=== PATIENT | female | born 2000 | race Caucasian/White ===

== ENCOUNTER 2023-04-01 12:48 | Emergency (ER) | payer SELFPAY ==
[2023-04-01] MEDS ORDERED: Albuterol 200 PUFF INH ONE (13:23)
[2023-04-01] MEDS ORDERED: Dexamethasone 10 MG/ML VIAL ONE (13:23)
== END 2023-04-01 14:11 | disposition home or self-care (01) ==
LOC: ERS 12:48
DX: U07.1 COVID-19 (principal); J45.909 Unspecified asthma, uncomplicated; F17.210 Nicotine dependence, cigarettes, uncomplicated
CPT/HCPCS: 71045; J1100

== ENCOUNTER 2023-04-02 10:46 | Emergency (ER) | payer BC | END 2023-04-02 12:21 | disposition home or self-care (01) | LOC: ERS 10:46 | DX: L27.0 Generalized skin eruption due to drugs and medicaments taken internally (principal); T48.6X5A Adverse effect of antiasthmatics, initial encounter; F17.290 Nicotine dependence, other tobacco product, uncomplicated | CPT/HCPCS: 99283 ==

== ENCOUNTER → 2024-02-02 | Day surgery (SDC) | payer BC ==
[~2024-02-02] MED LIST: Gadobenate Dimeglumine 2 ML, Sodium Chloride 0.9% 250 ML 10 ML, Iopamidol 8 ML, Lidocai... FS SCH; Lidocaine 1% PF 5 ML VIAL ONE; Sodium Bicarbonate 2.5 MEQ/5 ML SDV ONE
== END ==
LOC: SJX 09:31 → EDSTATUS 10:00
PROVIDERS: ATTEND Family Medicine Sports Medicine
PROC: BP09YZZ Plain Radiography of Left Shoulder using Other Contrast (ICD-10-PCS; principal; 2024-02-02)
PROC: BQ00YZZ Plain Radiography of Right Hip using Other Contrast (ICD-10-PCS; principal; 2024-02-02)
DX: S43.432A Superior glenoid labrum lesion of left shoulder, initial encounter (principal); M24.151 Other articular cartilage disorders, right hip; X58.XXXA Exposure to other specified factors, initial encounter
CPT/HCPCS: 23350; 27093; 77002; A9577; J0171; J7050; Q9967